=== PATIENT | female | born 1995 | race Caucasian/White ===

== ENCOUNTER → 2020-11-17 | Day surgery (SDC) | payer OTHER ==
[~2020-11-17] VITALS: Ht 154.9 cm; Wt 104.3 kg
[2020-11-17 07:32] LABS: HCG (URINE) SCREEN NEGATIVE (NEGATIVE)
[2020-11-17 07:58] LABS: HCT 42.2 % (37.0-47.0); HGB 13.5 g/dl (12.5-16.0); MCH 27.6 pg (25.0-31.0); MCV 86.1 fL (78.0-100.0); MPV 9.7 fL (6.0-9.5); RBC 4.9 M/uL (4.20-5.40); RDW 14.5 % (11.5-14.0); WBC 12.11 K/uL (4.0-10.5)
[2020-11-17 08:48] LABS: ALBUMIN 3.7 g/dL (3.4-5.0); BILIRUBIN - TOTAL 0.2 mg/dL (0.2-1.0); BUN/CREAT RATIO (CALC) 17.5 RATIO; CREATININE 0.57 mg/dL (0.51-0.95); GLOBULIN (CALCULATION) 4.5 g/dL; POTASSIUM 3.8 mmol/L (3.5-5.1); TOTAL PROTEIN 8.2 g/dL (6.4-8.2)
== END | disposition home or self-care (01) ==
LOC: FAS 07:01
PROVIDERS: Anesthesiology; Surgery
DX: K57.30 Diverticulosis of large intestine without perforation or abscess without bleeding (principal)
CPT/HCPCS: 36415; 80053; 84703; J1610; J2250; J2704; J7120